=== PATIENT | male | born 1985 | race Caucasian/White ===

== ENCOUNTER 2023-09-21 03:42 | Emergency (ER) | payer OTHER, SELFPAY ==
--- NOTE | 2023-09-21 03:46 | ED_ITS ---
HPI - General Adult General Time Seen by Provider: 03:46 Date Seen: 09/21/23 Chief complaint: Fall/Minor Trauma Stated complaint: fall from semi truck Time Seen by Provider: 09/21/23 03:46 Source: patient, RN notes reviewed and old records reviewed Mode of arrival: ambulatory Limitations: no limitations History of Present Illness HPI narrative: 37-year-old male who comes in today after a fall off his semi. Patient's but predominantly complaining of left shoulder and right knee pain. Denies head injury or loss of consciousness, denies pain in the back or abdomen. Related Data Home Medications Medication Instructions Recorded Confirmed No Known Home Medications 09/21/23 09/21/23 Allergies Allergy/AdvReac Type Severity Reaction Status Date / Time No Known Drug Allergies Allergy Verified 09/21/23 03:56 [facility] Medical History (Updated 09/21/23 @ 04:40 by Vasu Casillas MD) No significant past medical history Surgical History (Updated 09/21/23 @ 03:59 by Abelardo Cody RN) No significant past surgical history Social History Smoking Status: Never smoker Do you use any of these nicotine containing products: Vaping Products and Smokeless Tobacco Second hand tobacco smoke exposure: No How often do you have a drink containing alcohol: never AUDIT-C Alcohol total score: 0 Non-prescribed substance use: denies use Exam Narrative: Exam Narrative: General: Well-developed and well-nourished, no acute distress Head: Atraumatic and normocephalic Eyes: Pupils are equal reactive, extraocular motions intact, conjunctiva clear ENT: External nose and ears are normal, posterior pharynx without erythema or exudate Neck: No midline cervical tenderness, full spontaneous range of motion the neck, trachea midline, no adenopathy Heart: Regular rate and rhythm no murmurs or thrills Lungs: Clear to auscultation bilaterally without wheezes or crackles Abdomen: Soft, nontender, nondistended with active bowel sounds Musculoskeletal: Tenderness of the left trapezius area. No midline cervical, thoracic, lumbar tenderness. No tenderness of the scapula or left upper posterior chest wall. To partial-thickness lacerations over the patellar tendon on the right- more proximal is 2 cm with about 3 mm of gap and appears to have some avulsed tissue, inferior is 2 cm partial-thickness. Tenderness the patellar tendon and some swelling of the bursa. Small knee joint effusion, quadriceps mechanism is intact. Neurologic: Awake, alert, and oriented x3, no gross focal neurologic deficits, cranial nerves intact as tested Psych: Mood and affect are appropriate Skin: No rashes Const: Vital Signs, click to edit/add: Vital Signs - 24 hr 09/21/23 03:51 09/21/23 04:07 Temperature 98.4 F 98.4 F Pulse Rate [Right Pulse Oximeter] 84 Respiratory Rate 20 Blood Pressure [Ri ght Upper Arm] 125/71 Pulse Oximetry 99 Oxygen Delivery Me thod Room Air Course Course ED Course: Patient seen and examined, prior records reviewed. Patient presents today after a fall. He has 2 lacerations over the inferior patella as well as some swelling of the with patella bursa consistent with traumatic bursitis. X-rays are ordered and laceration will be repaired. Reevaluation(s) Time of Reevaluation #1: 04:36 Reevaluation #1: Laceration repair, right knee 2 cm partial-thickness avulsion. Risks and benefits discussed with patient, verbal consent was obtained. Area was cleansed with wound cleanser. Lidocaine 1% with epinephrine 2 mL total injected along the edges of wound and irrigated with 1 L of sterile water. Wound was explored, no foreign bodies found. Laceration was closed with 2 4-0 Ethilon simple interrupted sutures. Discussed wound care with the patient. He tolerated this well X-ray of the right knee independently interpreted by me does not demonstrate any acute fracture. Patient will be discharged with knee immobilizer crutches to use for the next week until wound heals, sutures out in 2 weeks. Vital Signs Vital signs: Initial Vital Signs Temperature 98.4 F 09/21/23 03:51 Temperature Source Temporal Artery Scan 09/21/23 03:51 Pulse Rate 84 09/21/23 03:51 Respiratory Rate 20 09/21/23 03:51 Blood Pressure 125/71 09/21/23 03:51 Blood Pressure Mean 89 09/21/23 03:51 Blood Pressure Position Sitting 09/21/23 03:51 Pulse Oximetry 99 09/21/23 03:51 Oxygen Delivery Method Room Air 09/21/23 03:51 Vital Signs Temperature 98.4 F 09/21/23 03:51 Pulse Rate 84 09/21/23 03:51 Respiratory Rate 20 09/21/23 03:51 Blood Pressure 125/71 09/21/23 03:51 Pulse Oximetry 99 09/21/23 03:51 Oxygen Delivery Method Room Air 09/21/23 03:51 Temperature 98.4 F 09/21/23 04:07 Pulse Rate 84 09/21/23 03:51 Respiratory Rate 20 09/21/23 03:51 Blood Pressure 125/71 09/21/23 03:51 Pulse Oximetry 99 09/21/23 03:51 Oxygen Delivery Method Room Air 09/21/23 03:51 Medications Administered Medications: Generic Name Dose Route Start Last Admin Trade Name Yovany PRN Reason Stop Dose Admin Ibuprofen 600 mg 09/21/23 03:56 09/21/23 04:07 Ibuprofen 600 Mg Tablet PO 09/21/23 03:57 600 mg ONCE ONE Administration Lidocaine/Epinephrine 20 ml 09/21/23 04:05 09/21/23 04:00 Lidocaine 1%-Epi 1:100,000 20 Ml INFILTRATI 09/21/23 04:06 20 ml ONCE ONE Administration Discharge Plan Discharge Clinical Impression: Traumatic bursitis, Laceration of knee, right Patient Disposition: Home, Self-Care Condition: Stable Instructions: Laceration (DC), Knee Bursitis (ED) Additional Instructions: Ice the knee every 3-4 hours for 15-20 minutes at a time while awake. Tylenol or ibuprofen as needed for pain. Wear immobilizer when you are walking and use crutches for comfort. Avoid bending the knee past about 75? for the next 3-4 days to allow the lacerations to heal. Activity Level: Other Activity Detail: Immobilizer when walking for the next 5 days, you may take this off to sleep. Weight-bearing as tolerated. Use crutches if your were in the immobilizer. Discharge Diet: Regular Prescriptions: No Action No Known Home Medications Follow Up/Referrals: Provider,Not a Local [Primary Care Provider] - Stand Alone Forms: Notable [employer] Info Instructions
[2023-09-21 03:51] VITALS: BP 125/71; PULSE 84; RESP 20; TEMP 36.9; O2SAT 99; BMI 23.1
[2023-09-21 04:07] VITALS: TEMP 36.9
[2023-09-21] MEDS: IBUPROFEN 600 MG TABLET PO (04:07)
--- NOTE | 2023-09-21 04:13 | XR_ITS ---
Patient: DOMINGO DEL CID Facility:?[facility] Patient ID:?[id number] Site Patient ID:?[id number]. Site :?[id number] Study:?XRay-Extremity Right KNEE 3 VIEWS-09/21/2023 4:33:19 AM Ordering Physician:AUNDREA Final Report: Indication: Right knee injury Technique: Three views right knee Comparison: None Findings: Moderate joint effusion. No fracture. Normal alignment. Normal underlying bone mineralization. Impression: Right knee joint effusion. No underlying bony abnormality seen radiographically. Dictated by Fela Mujica MD @ 09/21/2023 4:43:26 AM Signed by:?Fela Mujica MD @09/21/2023 4:43:26 AM (Electronic Signature)
[2023-09-21 04:59] VITALS: BP 118/68; PULSE 79; RESP 20; TEMP 36.9; O2SAT 99
[2023-09-21 05:03] VITALS: BP 118/68; PULSE 79; RESP 20; TEMP 36.9
== END 2023-09-21 05:04 | disposition home or self-care (01) ==
PROVIDERS: Emergency Provider Family Medicine
DX: S81.011A Laceration without foreign body, right knee, initial encounter (principal); M70.51 Other bursitis of knee, right knee; V68.4XXA Person boarding or alighting a heavy transport vehicle injured in noncollision transport accident, initial encounter
CPT/HCPCS: 12001; 73562; 99283; 99284; A9270